=== PATIENT | female | born 1970 | race Caucasian/White ===

== ENCOUNTER 2016-10-13 06:59 | Emergency (ER) | payer OTHER ==
[2016-10-13 07:11] VITALS: BP 188/91; PULSE 107; TEMP 98.7; BMI 46.0
[2016-10-13] MEDS ORDERED: PENICILLIN 250 MG TAB PO ONE (07:14)
[2016-10-13] MEDS ORDERED: OXYCODONE HCL 5 MG TABLET PO STA (07:14)
--- NOTE | 2016-10-13 07:16 | EDPRACDOC ---
- General Information Chief Complaint: Toothache Stated Complaint: ABSCESS TOOTH Time Seen by Provider: 10/13/16 07:12 Mode Of Arrival: Car Home Medications: Home Medications Aspirin (Enteric Coated) [Ecotrin] 81 mg PO DAILY 10/21/15 Ketorolac Tromethamine 10 mg PO Q6H PRN #20 tab 10/21/15 Oxycodone HCl [Roxicodone] 5 mg PO Q4-6H PRN #15 tablet 10/13/16 Penicillin V Potassium 500 mg PO QID #40 tablet 10/13/16 Allergies/Adverse Reactions: Allergies Allergy/AdvReac Type Severity Reaction Status Date / Time doxycycline Allergy Anxiety Verified 10/13/16 07:11 - History of Present Illness Onset: 2 DAYS HPI: PT PRESENTS WITH RIGHT LOWER JAW PAIN FROM ABSCESSED TOOTH. HAS CHRONIC POOR DENTITION AND REPORTS INTERMITTENT INFECTIONS. Pain Severity: Reports: Moderate Relevant History of: Reports: Diabetes Modifying Factors: improves with: Chewing Associated Signs and Symptoms: Denies: Fever ED Past Medical History - History Reviewed Yes Nurses notes reviewed and agree except as marked - Patient Medical History Systemic History: Reports: Diabetes (NIDDM) Surgical History: Denies: Hysterectomy - Social Medical History Lives With: Family Lives In: Home EDM Review of Systems - Review of Systems ROS Negative Except as Marked: Yes All systems reviewed and were negative except as marked Mouth: Tooth Pain (RIGHT LOWER 1ST MOLAR.) - Physical Exam Constitutional: Alert Oriented to: Time, Person, Place Last recorded Vital Signs: Last Vital Signs Temp 98.7 F 10/13/16 07:08 Pulse 107 10/13/16 07:08 Resp 20 10/13/16 07:08 BP 188/91 H 10/13/16 07:08 Pulse Ox 95 10/13/16 07:08 Oxygen Pulse Oxygen Saturation 95 O2 Device Oxygen Flow Rate Fraction of Inspired Oxygen ( FIO2) - HEENT Head: negative: Deformity, Laceration Eye Exam: negative: Conjunctival Injection, Pale Conjunctiva Oropharynx: negative: Membranes Dry Nose: negative: Congestion, Discharge Neck: negative: Limited ROM - Integumentary Skin: Warm, Dry - Neurologic Memory Impaired: Normal Motor Function: Normal Mood Description: Anxious Thought: Coherent Perception: Normal ED Tooth Problem Exam - HEENT Face: Swelling (FOCAL RIGHT LOWER MANDIBULAR AT SITE OF DENTAL ABSCESS.) Gingiva: Tender, Swelling, Red. negative: Pointing, Draining, Necrotizing Palate: Normal Mouth Range of Motion: Normal Decision Time to Discharge: 07:16 - Departure Yes I personally saw and evaluated the patient. Disposition: Home Condition: Stable Instructions: Dental Abscess (ED) Education/Counseling Given To: Patient Education/Counseling Given Regarding: Diagnosis, Treatment, Prognosis, Follow Up Referrals: Emely Madera, [facility] [Primary Care Provider] - As Needed Prescriptions: Oxycodone HCl [Roxicodone] 5 mg PO Q4-6H PRN #15 tablet PRN Reason: Breakthrough Pain Penicillin V Potassium 500 mg PO QID #40 tablet Additional Instructions: YOU MUST FOLLOW UP WITH A DENTIST FOR FURTHER CARE.
== END 2016-10-13 07:30 | disposition home or self-care (01) ==
LOC: ED 06:59
DX: K04.7 Periapical abscess without sinus (principal)
CPT/HCPCS: 99283; J3490